=== PATIENT | female | born 1925 | race Caucasian/White ===

== ENCOUNTER 2016-03-12 06:19 | Inpatient (IN) | payer MEDICARE, OTHER ==
[~2016-03-12] VITALS: Ht 152.4 cm; Wt 43.3 kg
[2016-03-12] VITALS (9 sets, daily range): BP systolic 100–161; BP diastolic 44–70
[2016-03-12 06:47] LABS: BASO # 0.1 10*3/uL (0.0-0.1); BASO % 0.5 % (0.0-1.0); EOS # 0.2 10*3/uL (0.0-0.4); EOS % 1.9 % (1.0-4.0); HEMATOCRIT 34.4 % (37.0-47.0); HEMOGLOBIN 11.4 g/dl (12.0-16.0); LYMPH % 22.2 % (27.0-41.0); MEAN CORPUSCULAR HGB 31.1 pg (27.0-31.0); MEAN CORPUSCULAR HGB CONC 33.1 g/dl (33.0-37.0); MEAN PLATELET VOLUME 10.2 fl (9.6-12.3); MONO # 0.9 10*3/uL (0.1-1.0); MONO % 10.3 % (3.0-9.0); NEUT # 5.9 10*3/uL (2.3-7.9); NEUT % 64.9 % (47.0-73.0); PLATELET COUNT AUTOMATED 237 10*3/uL (130-400); RED BLOOD COUNT 3.66 10*6/uL (4.10-5.10); RED CELL DISTRI WIDTH 13.7 % (0-14.5); WHITE BLOOD COUNT 9.2 10*3/uL (4.8-10.8)
[2016-03-12] MEDS ORDERED: CLOPIDOGREL75 MG PO (06:52)
[2016-03-12] MEDS ORDERED: ATENOLOL25 MG PO (06:52)
[2016-03-12] MEDS ORDERED: FUROSEMIDE40 MG PO (06:52)
[2016-03-12] MEDS ORDERED: ESCITALOPRAM OX10 MG PO (06:52)
[2016-03-12] MEDS ORDERED: CADUET 5 MG-401 EACH PO (06:54)
[2016-03-12] MEDS ORDERED: ASPIRIN81 M1 PO (06:54)
[2016-03-12] MEDS ORDERED: VITAMIN D1000 IU PO (06:55)
[2016-03-12] MEDS ORDERED: K-TAB20 MEQ PO (06:56)
[2016-03-12] MEDS ORDERED: CENTRUM SILVER1 EAC1 PO (06:56)
[2016-03-12 07:09] LABS: ALBUMIN 3.5 gm/dl (3.1-4.5); ALKALINE PHOSPHATASE 108 U/L (45-117); BUN 21 mg/dl (7-24); CARBON DIOXIDE 26 mmol/L (21-32); CHLORIDE 104 mmol/L (98-107); EST GLOM FILT AFRICAN AMERICAN > 60 ml/min; GLUCOSE 93 mg/dL (65-99); POTASSIUM 3.7 mmol/L (3.5-5.1); SGOT/AST 43 IU/L (3-35); SGPT/ALT 57 U/L (12-78); SODIUM 140 mmol/L (136-145); TOTAL PROTEIN 7.2 gm/dL (6.4-8.2)
[2016-03-12 08:03] LABS: PROTHROMBIN TIME 10.2 SECONDS (9.0-12.4)
[2016-03-12 11:33] LABS: CKMB 1.5 ng/ml (0.5-3.6)
[2016-03-12 18:02] LABS: CKMB 1.2 ng/ml (0.5-3.6)
[2016-03-13] VITALS (7 sets, daily range): BP systolic 112–168; BP diastolic 54–84
[2016-03-13 00:29] LABS: CKMB 1.1 ng/ml (0.5-3.6)
[2016-03-13 05:31] LABS: PROTHROMBIN TIME 10.9 SECONDS (9.0-12.4)
[2016-03-13 05:58] LABS: ALBUMIN 2.9 gm/dl (3.1-4.5); ALKALINE PHOSPHATASE 83 U/L (45-117); BILIRUBIN, TOTAL 0.9 mg/dl (0.2-1.0); BUN 16 mg/dl (7-24); CARBON DIOXIDE 29 mmol/L (21-32); CHLORIDE 103 mmol/L (98-107); EST GLOM FILT AFRICAN AMERICAN > 60 ml/min; FREE T4 1.23 ng/dl (0.76-1.46); GLUCOSE 84 mg/dL (65-99); POTASSIUM 3.4 mmol/L (3.5-5.1); SGOT/AST 21 IU/L (3-35); SGPT/ALT 39 U/L (12-78); SODIUM 140 mmol/L (136-145); THYROID STIM HORMONE (HS) 2.31 uIU/ml (0.358-4.75)
[2016-03-13 06:12] LABS: BASO % 0.4 % (0.0-1.0); EOS # 0.2 10*3/uL (0.0-0.4); EOS % 2.8 % (1.0-4.0); HEMATOCRIT 31.6 % (37.0-47.0); HEMOGLOBIN 10.6 g/dl (12.0-16.0); LYMPH # 2.2 10*3/uL (1.3-4.4); LYMPH % 32.4 % (27.0-41.0); MEAN CELL VOLUME 94.6 fl (81.0-99.0); MEAN CORPUSCULAR HGB 31.7 pg (27.0-31.0); MEAN CORPUSCULAR HGB CONC 33.5 g/dl (33.0-37.0); MEAN PLATELET VOLUME 10.5 fl (9.6-12.3); MONO # 0.8 10*3/uL (0.1-1.0); MONO % 11.3 % (3.0-9.0); NEUT # 3.6 10*3/uL (2.3-7.9); NEUT % 52.8 % (47.0-73.0); PLATELET COUNT AUTOMATED 205 10*3/uL (130-400); RED BLOOD COUNT 3.34 10*6/uL (4.10-5.10); RED CELL DISTRI WIDTH 13.4 % (0-14.5); WHITE BLOOD COUNT 6.8 10*3/uL (4.8-10.8)
[2016-03-13 07:15] LABS: HEMOGLOBIN A1c 5.2 % (4.8-5.6)
[2016-03-13 08:23] LABS: FOLIC ACID > 24.00 ng/mL (>5.38)
[2016-03-14] VITALS: BP 158/76
[2016-03-14 06:48] LABS: BASO # 0.1 10*3/uL (0.0-0.1); BASO % 0.4 % (0.0-1.0); EOS # 0.2 10*3/uL (0.0-0.4); EOS % 1.3 % (1.0-4.0); HEMATOCRIT 36.9 % (37.0-47.0); LYMPH # 2.7 10*3/uL (1.3-4.4); LYMPH % 20.7 % (27.0-41.0); MEAN CORPUSCULAR HGB 31.4 pg (27.0-31.0); MEAN CORPUSCULAR HGB CONC 34.1 g/dl (33.0-37.0); MEAN PLATELET VOLUME 10.4 fl (9.6-12.3); MONO # 1.3 10*3/uL (0.1-1.0); MONO % 10.1 % (3.0-9.0); NEUT # 8.9 10*3/uL (2.3-7.9); NEUT % 67.2 % (47.0-73.0); PLATELET COUNT AUTOMATED 258 10*3/uL (130-400); RED BLOOD COUNT 4.01 10*6/uL (4.10-5.10); RED CELL DISTRI WIDTH 13.3 % (0-14.5); WHITE BLOOD COUNT 13.2 10*3/uL (4.8-10.8)
[2016-03-14 06:49] LABS: HEMOGLOBIN 12.6 g/dl (12.0-16.0)
[2016-03-14 07:01] LABS: BUN 13 mg/dl (7-24); CARBON DIOXIDE 27 mmol/L (21-32); EST GLOM FILT AFRICAN AMERICAN > 60 ml/min; GLUCOSE 86 mg/dL (65-99)
[2016-03-14 07:05] LABS: INTERNATIONAL NORM RATIO 1.1 (2.0-3.5); PROTHROMBIN TIME 11.8 SECONDS (9.0-12.4)
[2016-03-14 07:14] LABS: CHLORIDE 101 mmol/L (98-107); POTASSIUM 3.8 mmol/L (3.5-5.1); SODIUM 138 mmol/L (136-145)
[2016-03-14 08:00] VITALS: BP 160/78
[2016-03-14 09:21] VITALS: BP 137/50
[2016-03-14 12:00] VITALS: BP 128/56
[2016-03-14 16:00] VITALS: BP 117/86
[2016-03-14 20:00] VITALS: BP 136/76
[2016-03-15] VITALS: BP 158/64
[2016-03-15 06:36] LABS: INTERNATIONAL NORM RATIO 1.9 (2.0-3.5); PROTHROMBIN TIME 20.7 SECONDS (9.0-12.4)
[2016-03-15 08:00] VITALS: BP 136/64
[2016-03-15 12:00] VITALS: BP 111/50; BP 118/60
[2016-03-15 16:00] VITALS: BP 134/60
[2016-03-15] MEDS ORDERED: Coumadin5 MG PO (16:06)
== END 2016-03-15 18:20 | disposition home health service (06) | DRG 291 ==
LOC: ED 06:19 → 5E 07:38 → EDHOLD 07:38 → 5E 08:11
PROVIDERS: Emergency Medicine; Emergency Medicine Emergency Medical Services; Family Medicine; Internal Medicine
DX: I11.0 Hypertensive heart disease with heart failure (principal); E43 Unspecified severe protein-calorie malnutrition; I48.91 Unspecified atrial fibrillation; D64.9 Anemia, unspecified; Z68.1 Body mass index [BMI] 19.9 or less, adult; I50.33 Acute on chronic diastolic (congestive) heart failure; R09.02 Hypoxemia; F41.9 Anxiety disorder, unspecified; F32.9 Major depressive disorder, single episode, unspecified; E78.5 Hyperlipidemia, unspecified; I08.0 Rheumatic disorders of both mitral and aortic valves; Z87.891 Personal history of nicotine dependence; Z86.73 Personal history of transient ischemic attack (TIA), and cerebral infarction without residual deficits; Z98.42 Cataract extraction status, left eye; Z98.41 Cataract extraction status, right eye; Z90.710 Acquired absence of both cervix and uterus; Z82.3 Family history of stroke; Z82.49 Family history of ischemic heart disease and other diseases of the circulatory system; Z91.012 Allergy to eggs; Z88.8 Allergy status to other drugs, medicaments and biological substances; Z79.82 Long term (current) use of aspirin; Z79.899 Other long term (current) drug therapy